=== PATIENT | female | born 1995 ===

== ENCOUNTER 2017-03-01 15:41 | Emergency (ER) | payer MEDICAID, OTHER ==
[2017-03-01 15:42] VITALS: BMI 27.2
[2017-03-01 15:57] VITALS: BP 108/66; PULSE 86; RESP 19; TEMP 98.4; O2SAT 98
--- NOTE | 2017-03-01 16:06 | ED PDOC ---
Arrival/HPI - General Chief Complaint: Female Genitourinary Time Seen by Provider: 03/01/17 16:04 Historian: Patient - History of Present Illness Narrative History of Present Illness (Text): 03/01/17 16:04 Patient reports 1 week h/o yellow malodorous vaginal discharge. Has used over the counter preparation - monistat 2-3 days ago with no relief. Otherwise: (- ) abdominal pain, (-) dysuria, (-) recent antibiotic use, (-) fever, (-) urinary symptoms. Of note, patient adds that she has a h/o TOP 1 month ago, since then has not had her period, but is sexually active with 1 partner, has been using condoms all the time. LNMP: 1 month ago Past Medical History - Provider Review Nursing Documentation Reviewed: Yes - Past History Past History: No Previous - Infectious Disease Hx of Infectious Diseases: None - Tetanus Immunization Tetanus Immunization: Unknown - Past Medical History Past Medical History: No Previous - Cardiac Hx Cardiac Disorders: No - Pulmonary Hx Respiratory Disorders: No - Neurological Hx Neurological Disorder: No - HEENT Hx HEENT Disorder: No - Renal Hx Renal Disorder: No - Endocrine/Metabolic Hx Endocrine Disorders: No - Hematological/Oncological Hx Blood Disorders: No - Integumentary Hx Dermatological Disorder: No - Musculoskeletal/Rheumatological Hx Musculoskeletal Disorders: No - Gastrointestinal Hx Gastrointestinal Disorders: No - Genitourinary/Gynecological Hx Genitourinary Disorders: Yes Hx Reproductive Disorders: (ovarian cyst) - Psychiatric Hx Psychophysiologic Disorder: No Hx Substance Use: Yes (sometimes) - Past Surgical History Past Surgical History: No Previous - Surgical History Other/Comment: 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 - Anesthesia Hx Anesthesia: Yes Hx Anesthesia Reactions: No Hx Malignant Hyperthermia: No - Suicidal Assessment Feels Threatened In Home Enviroment: No Family/Social History - Physician Review Nursing Documentation Reviewed: Yes Family/Social History: No Known Family HX Smoking Status: Heavy Smoker > 10 Cigarettes Daily Hx Alcohol Use: Yes Hx Substance Use: Yes (sometimes) Substance used: marijuana Hx Substance Use Treatment: No Allergies/Home Meds Allergies/Adverse Reactions: Allergies No Known Allergies Allergy (Verified 03/01/17 15:57) Review of Systems - Review of Systems Constitutional: Normal. absent: Fatigue, Weight Change, Fevers Cardiovascular: Normal. absent: Chest Pain, Palpitations Gastrointestinal: Normal. absent: Abdominal Pain, Stool Changes, Appetite Changes Genitourinary Female: Normal, Vaginal Discharge. absent: Dysuria, Frequency, Hematuria Skin: Normal. absent: Rash, Pruritis, Skin Lesions Physical Exam - Physical Exam Narrative Physical Exam (Text): 03/01/17 16:05 GENERAL APPEARANCE: Patient is awake, alert, oriented x 3, in no acute distress. SKIN: Warm, dry; (-) cyanosis. ABDOMEN AND GI: Soft, (-) tenderness. PELVIC: Normal external genitalia; (-) vesicles, (-) ulcers. (+) think yellow- green vaginal discharge; (-) cervical discharge, (-) bleeding, (-) pain on cervical motion. Uterus normal. No adnexal mass or tenderness. A female RN - Renetta, was lining brusher during the entire examination. EXTREMITIES: (-) deformity. Vital Signs Temp Pulse Resp BP Pulse Ox 03/01/17 15:49 98.4 F 86 19 108/66 98 Medical Decision Making ED Course and Treatment: 03/01/17 16:05 22 yo F c/o 1 week h/o vaginal discharge, based on exam is likely bacterial vaginosis. cg (-). Based on history and exam, plan will be for outpatient follow-up. Patient states he fully agrees with and understands discharge instructions. States that he agrees with the plan and disposition. Verbalized and repeated discharge instructions and plan. I have given the patient opportunity to ask any additional questions. Follow up with the clinic in 1-2 days without fail. Advised to take medication as prescribed. Return to the emergency room at any time for any new or worsening symptoms. - PA / PULP DRIER FIRER / Resident Statement MD/DO has reviewed & agrees with the documentation as recorded. Disposition/Present on Arrival - Present on Arrival Any Indicators Present on Arrival: No History of DVT/PE: No History of Uncontrolled Diabetes: No Urinary Catheter: No History of Decub. Ulcer: No History Surgical Site Infection Following: None - Disposition Have Diagnosis and Disposition been Completed?: Yes Diagnosis: Bacterial vaginosis Disposition: HOME/ ROUTINE Disposition Time: 16:29 Patient Plan: Discharge Condition: GOOD Discharge Instructions (ExitCare): Bacterial Vaginosis (ED) Print Language: HUNGARIAN Prescriptions: Metronidazole [Metrogel-Vaginal] 1 ea VG QPM #5 gel Referrals: Dynis Jignesh Tee, [Primary Care Provider] - Follow up with primary Forms: WORK NOTE, SCHOOL NOTE
== END 2017-03-01 16:38 | disposition home or self-care (01) ==
LOC: ED 15:41
DX: N76.0 Acute vaginitis (principal)

== ENCOUNTER 2017-04-03 19:03 | Emergency (ER) | payer SELFPAY ==
[2017-04-03 19:17] VITALS: BMI 27.7
[2017-04-03 19:19] VITALS: O2SAT 99
[2017-04-03] MEDS ORDERED: Sodium Chloride 0.9% 1,000 ML IV STA (20:04)
[2017-04-03] MEDS ORDERED: Sodium Chloride 0.9% 100 ML IV SCH (20:06)
--- NOTE | 2017-04-03 20:31 | ED PDOC ---
Arrival/HPI - General Chief Complaint: Flu-like Symptoms Time Seen by Provider: 04/03/17 19:55 Historian: Patient - History of Present Illness Narrative History of Present Illness (Text): 04/03/17 20:28 This is a 22Y F with PMH dermoid ovarian cyst s/p removal here for sore throat, cough, abdominal pain for the past 2 days. The patient reports that for the past 2 days she began having a cough and sore throat. She says she has fever, chills, but denies sick contacts or recent travel. She started to have n/v/d and epigastric pain that radiates to LUQ. She denies dysuria, hematuria, back pain, dizziness, neck pain or vision changes. She reports she is up to date with all vaccinations. Time/Duration: < week (2 days ) Symptom Onset: Gradual Symptom Course: Worsening Quality: Aching, Pressure Severity Level: 8 Activities at Onset: Rest Context: Home Past Medical History - Provider Review Nursing Documentation Reviewed: Yes - Past History Past History: No Previous - Infectious Disease Hx of Infectious Diseases: None - Tetanus Immunization Tetanus Immunization: Unknown - Past Medical History Past Medical History: No Previous - Cardiac Hx Cardiac Disorders: No - Pulmonary Hx Respiratory Disorders: No - Neurological Hx Neurological Disorder: No - HEENT Hx HEENT Disorder: No - Renal Hx Renal Disorder: No - Endocrine/Metabolic Hx Endocrine Disorders: No - Hematological/Oncological Hx Blood Disorders: No - Integumentary Hx Dermatological Disorder: No - Musculoskeletal/Rheumatological Hx Musculoskeletal Disorders: No - Gastrointestinal Hx Gastrointestinal Disorders: No - Genitourinary/Gynecological Hx Genitourinary Disorders: Yes Hx Reproductive Disorders: (ovarian cyst) - Psychiatric Hx Psychophysiologic Disorder: No Hx Substance Use: Yes (sometimes) - Past Surgical History Past Surgical History: No Previous - Surgical History Hx Dilation and Curettage: Yes (January 2017) Other/Comment: 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 - Anesthesia Hx Anesthesia: Yes Hx Anesthesia Reactions: No Hx Malignant Hyperthermia: No - Suicidal Assessment Feels Threatened In Home Enviroment: No Family/Social History - Physician Review Nursing Documentation Reviewed: Yes Family/Social History: Hypertension Smoking Status: Never Smoked Hx Alcohol Use: Yes Hx Substance Use: Yes (sometimes) Substance used: marijuana Hx Substance Use Treatment: No Allergies/Home Meds Allergies/Adverse Reactions: Allergies No Known Allergies Allergy (Verified 03/01/17 15:57) Review of Systems - Review of Systems Constitutional: Normal Eyes: Normal ENT: Normal Respiratory: Normal Cardiovascular: Normal Gastrointestinal: Normal Genitourinary Female: Normal Musculoskeletal: Normal Skin: Normal Neurological: Normal Endocrine: Normal Hemo/Lymphatic: Normal Psychiatric: Normal Physical Exam Vital Signs Reviewed: Yes Vital Signs Temp Pulse Resp BP Pulse Ox 04/03/17 21:20 98.9 F 79 18 114/73 99 04/03/17 19:18 101.4 F H 87 16 114/66 99 Temperature: Febrile Blood Pressure: Normal Pulse: Regular Respiratory Rate: Normal Appearance: Positive for: Well-Appearing, Non-Toxic, Comfortable Pain Distress: None Mental Status: Positive for: Alert and Oriented X 3 - Systems Exam Head: Present: Atraumatic, Normocephalic Pupils: Present: PERRL Extroacular Muscles: Present: EOMI Conjunctiva: Present: Normal Mouth: Present: Moist Mucous Membranes Pharnyx: Present: ERYTHEMA, TONSILS ENLARGED. No: EXUDATE Nose (External): Present: Atraumatic Nose (Internal): Present: Rhinorrhea Neck: Present: Normal Range of Motion Respiratory/Chest: Present: Clear to Auscultation, Good Air Exchange. No: Respiratory Distress, Accessory Muscle Use Cardiovascular: Present: Regular Rate and Rhythm, Normal S1, S2. No: Murmurs Abdomen: Present: Tenderness (epigastric), Normal Bowel Sounds. No: Distention , Peritoneal Signs Back: Present: Normal Inspection Upper Extremity: Present: Normal Inspection. No: Cyanosis, Edema Lower Extremity: Present: Normal Inspection. No: Edema Neurological: Present: GCS=15, CN II-XII Intact, Speech Normal Skin: Present: Warm, Dry, Normal Color. No: Rashes Psychiatric: Present: Alert, Oriented x 3, Normal Insight, Normal Concentration Medical Decision Making ED Course and Treatment: 04/03/17 20:31 Impression: This is a 22 year old F with no PMH here for sore throat, cough, abdominal pain with n/v/d. She has fever and chills, but denies sick contacts, dysuria, hematuria. Differential Diagnosis: -- Influenza, EBV, pneumonia Plan: -- CBC, CMP, U/A, Urine culture, influenza, Monospot test -- CXR -- Tylenol, IVF, Pepcid, Zofran, Rapid strep. -- Reassess and disposition Prior Visits: Notes and results from previous visits were reviewed. Progress Note: All lab work within normal. Patient reports feeling better. Appetite improved. Re-evaluation Time: 21:45 Reassessment Condition: Improved - Lab Interpretations Lab Results: 04/03/17 20:30 04/03/17 20:30 Lab Results 04/03/17 22:15: Grp A Beta Strep Ag Negative 04/03/17 20:48: Urine Color Yellow, Urine Appearance Clear, Urine pH 6.0, Ur Specific [place] >= 1.030, Urine Protein Trace H, Urine Glucose (UA) Negative, Urine Ketones >=80, Urine Blood Negative, Urine Nitrate Negative, Urine Bilirubin Negative, Urine Urobilinogen 0.2, Ur Leukocyte Esterase Negative, Urine RBC Negative, Urine WBC 1 - 3, Ur Epithelial Cells 3 - 4, Urine Bacteria Few 04/03/17 20:43: Beta HCG, Quant < 2.39 04/03/17 20:30: Influenza Typ A,B (EIA) Negative for flu a/b 04/03/17 20:30: Sodium 138, Potassium 3.9, Chloride 99, Carbon Dioxide 26, Anion Gap 17, BUN 10, Creatinine 0.8, Est GFR ( Amer) > 60, Est GFR (Non- Af Amer) > 60, Random Glucose 87, Calcium 9.7, Total Bilirubin 0.7, AST 33, ALT 36, Alkaline Phosphatase 75, Total Protein 8.3, Albumin 4.7, Globulin 3.6, Albumin/Globulin Ratio 1.3 04/03/17 20:30: WBC 9.6 D, RBC 4.82, Hgb 14.7, Hct 41.7, MCV 86.5, MCH 30.5, MCHC 35.3, RDW 12.3, Plt Count 225, MPV 11.9 H, Gran % 88.2 H, Lymph % (Auto) 7.0 L, [place] % (Auto) 4.2, Eos % (Auto) 0.4 L, Baso % (Auto) 0.2, Gran # 8.46 H, Lymph # 0.7 L, [place] # 0.4, Eos # 0.0, Baso # 0.02 I have reviewed the lab results: Yes Interpretation: All labs normal - RAD Interpretation Narrative RAD Interpretations (Text): 04/03/17 23:30 CXR showed no active disease. Radiology Orders: 04/03/17 22:48 CXR [CHEST PORTABLE] [RAD] Stat Repairer And Checker: ED Physician - Medication Orders Current Medication Orders: Discontinued Medications Acetaminophen (Tylenol 325mg Tab) 975 mg PO STAT STA Stop: 04/03/17 20:06 Last Admin: 04/03/17 20:51 Dose: 975 mg Re-Assess: MAR Pain/Vitals Document 04/03/17 21:51 HI (Rec: 04/03/17 23:41 HI [facility] [id number]) Pain Reassessment Is This A Pain ReAssessment? Yes Sleep Is patient sleeping during reassessment? No Pain Scale Used Pain Scale Used Numeric Famotidine (Pepcid) 20 mg IVP STAT STA Stop: 04/03/17 20:05 Last Admin: 04/03/17 20:52 Dose: 20 mg Sodium Chloride (Sodium Chloride 0.9%) 1,000 mls @ 999 mls/hr IV .Q1H1M STA Stop: 04/03/17 21:04 Last Admin: 04/03/17 20:30 Dose: 999 mls/hr Ibuprofen (Motrin Tab) 600 mg PO STAT STA Stop: 04/03/17 23:54 Ondansetron HCl (Zofran Inj) 4 mg IVP STAT STA Stop: 04/03/17 20:05 Last Admin: 04/03/17 20:51 Dose: 4 mg Disposition/Present on Arrival - Present on Arrival Any Indicators Present on Arrival: No History of DVT/PE: No History of Uncontrolled Diabetes: No Urinary Catheter: No History of Decub. Ulcer: No History Surgical Site Infection Following: None - Disposition Have Diagnosis and Disposition been Completed?: Yes Diagnosis: URI (upper respiratory infection), Gastritis Disposition: HOME/ ROUTINE Disposition Time: 22:00 Patient Plan: Discharge Patient Problems: Current Active Problems Problem Status Onset Gastritis Acute URI (upper respiratory infection) Acute Condition: FAIR Discharge Instructions (ExitCare): Gastritis (DC), Upper Respiratory Infection (ED), Cold Symptoms (ED) Print Language: GABONESE Additional Instructions: Ms. Soria, thank you for letting us take care of you today. Your provider was Dr. Rivers. You were treated for upper respiratory infection and gastritis. The emergency medical care you received today was directed at your acute symptoms. If you were prescribed any medication, please fill it and take as directed. It may take several days for your symptoms to resolve. Return to the Emergency Department if your symptoms worsen, do not improve, or if you have any other problems. Please contact your doctor or call one of the physicians/clinics you have been referred to that are listed on the Patient Visit Information form that is included in your discharge packet. Bring any paperwork you were given at discharge with you along with any medications you are taking to your follow up visit. Our treatment cannot replace ongoing medical care by a primary care provider (PCP) outside of the emergency department. Thank you for allowing the [facility] team to be part of your care today. If you had an X-Ray or CT scan: A Radiologist will review the ED reading if any change in treatment is needed we will contact you. If you had a blood, urine, or wound culture: It will take several days for the results, if any change in treatment is needed we will contact you. Will call to follow up [place] spot test results. Prescriptions: Ibuprofen [Motrin] 600 mg PO Q8H PRN #15 tab PRN Reason: Pain, Moderate (4-7) Referrals: PCP,NO [Primary Care Provider] - Follow up with primary
[2017-04-03 20:44] LABS: ADD MANUAL DIFF? NO
[2017-04-03 20:56] LABS: URINE BILIRUBIN NEGATIVE (NEGATIVE); URINE BLOOD NEGATIVE (NEGATIVE); URINE GLUCOSE (UA) NEGATIVE (NEGATIVE); URINE KETONE >=80 mg/dL (NEGATIVE); URINE LEUKOCYTE ESTERASE NEGATIVE Leu/uL (NEGATIVE); URINE PROTEIN TRACE mg/dL (<30 mg/dL); URINE UROBILINOGEN 0.2 E.U./dL (<1 E.U./dL)
[2017-04-03 20:57] LABS: BASO # 0.02 K/mm3 (0.0-2.0); BASO % 0.2 % (0.0-3.0); EOS % 0.4 % (1.5-5.0); GRAN # 8.46 (1.4-6.5); GRAN % 88.2 % (50.0-68.0); HEMATOCRIT 41.7 % (36.0-48.0); LYMPH # 0.7 (1.2-3.4); MEAN CELL VOLUME 86.5 fL (80.0-105.0); MEAN CORPUSCULAR HEMOGLOBIN 30.5 pg (25.0-35.0); MEAN CORPUSCULAR HGB CONC 35.3 g/dl (31.0-37.0); MEAN PLATELET VOLUME 11.9 fl (7.0-11.0); MONO # 0.4 (0.1-0.6); MONO % 4.2 % (1.0-6.0); PLATELET COUNT 225 10^3/uL (120.0-450.0); RED CELL DISTRIBUTION WIDTH 12.3 % (11.5-14.5); WHITE BLOOD COUNT 9.6 10^3/ul (4.5-11.0)
[2017-04-03 21:02] LABS: URINE APPEARANCE CLEAR (CLEAR); URINE COLOR YELLOW (YELLOW)
[2017-04-03 21:06] LABS: ALB/GLOB RATIO 1.3 (1.1-1.8); ALKALINE PHOSPHATASE 75 U/L (38-133); ALT/SGPT 36 U/L (7-56); AST/SGOT 33 U/L (15-39); BILIRUBIN,TOTAL 0.7 mg/dL (0.2-1.3); BLOOD UREA NITROGEN 10 mg/dL (7-21); CALCIUM 9.7 mg/dL (8.4-10.5); CARBON DIOXIDE 26 mmol/L (21-33); CHLORIDE 99 mmol/L (95-110); GFR AFRICAN-AMERICAN > 60; GLUCOSE,RANDOM 87 mg/dL (70-110); POTASSIUM 3.9 mmol/L (3.6-5.0); SODIUM 138 mmol/L (132-148); TOTAL PROTEIN 8.3 g/dL (5.8-8.3)
[2017-04-03 21:10] LABS: URINE BACTERIA FEW (NEG); URINE RBC NEGATIVE /hpf (0-2)
[2017-04-04 00:36] VITALS: BP 118/72; PULSE 91; RESP 16; TEMP 99.1
--- NOTE | 2017-04-04 14:28 | RAD ---
HISTORY: r/o pneumonia COMPARISON: 09/18/2015 FINDINGS: LUNGS: No active pulmonary disease. PLEURA: No significant pleural effusion identified, no pneumothorax apparent. CARDIOVASCULAR: Normal. OSSEOUS STRUCTURES: No significant abnormalities. VISUALIZED UPPER ABDOMEN: Normal. OTHER FINDINGS: None. IMPRESSION: No active disease.
== END 2017-04-04 00:38 | disposition home or self-care (01) ==
LOC: ED 19:03
DX: J06.9 Acute upper respiratory infection, unspecified (principal); K29.70 Gastritis, unspecified, without bleeding
CPT/HCPCS: 71010; 80053; 81001; 84702; 85025; 86308; 87070; 87086; 87430; 87804; 96374; 96375; 99284; J2405; J7040

== ENCOUNTER 2017-05-05 08:39 | Emergency (ER) | payer MEDICAID, OTHER ==
[2017-05-05 08:48] VITALS: BMI 25.8
[2017-05-05 08:54] VITALS: TEMP 97.4; O2SAT 100
[2017-05-05] MEDS ORDERED: Albuterol 0.083% Inhal Sol (2.5 mg/3 mL) UD IH STA (09:05)
[2017-05-05] MEDS ORDERED: guaiFENesin DM 200 mg-20 mg/10 ml UD PO STA (09:07)
--- NOTE | 2017-05-05 09:16 | ED PDOC ---
Arrival/HPI - General Chief Complaint: Cough, Cold, Congestion Time Seen by Provider: 05/05/17 08:57 Historian: Patient - History of Present Illness Narrative History of Present Illness (Text): 05/05/17 09:17 A 22 year old female presents to the emergency department complaining of a cough since yesterday. Patient reports a dry and productive cough with posttussive chest pain. Patient notes deep breaths that then make her cough. She also c/o frequent bowel movements but denies any fever, runny nose or any other complaints at this time. Time/Duration: Other (yesterday) Symptom Onset: Sudden Symptom Course: Unchanged Activities at Onset: Rest Context: Home Past Medical History - Provider Review Nursing Documentation Reviewed: Yes - Past History Past History: No Previous - Infectious Disease Hx of Infectious Diseases: None - Tetanus Immunization Tetanus Immunization: Unknown - Reproductive Menopause: No - Past Medical History Past Medical History: No Previous - Cardiac Hx Cardiac Disorders: No - Pulmonary Hx Respiratory Disorders: No - Neurological Hx Neurological Disorder: No - HEENT Hx HEENT Disorder: No - Renal Hx Renal Disorder: No - Endocrine/Metabolic Hx Endocrine Disorders: No - Hematological/Oncological Hx Blood Disorders: No - Integumentary Hx Dermatological Disorder: No - Musculoskeletal/Rheumatological Hx Musculoskeletal Disorders: No - Gastrointestinal Hx Gastrointestinal Disorders: No - Genitourinary/Gynecological Hx Genitourinary Disorders: Yes Hx Reproductive Disorders: (ovarian cyst) - Psychiatric Hx Psychophysiologic Disorder: No Hx Substance Use: Yes (sometimes) - Past Surgical History Past Surgical History: No Previous - Surgical History Hx Dilation and Curettage: Yes (January 2017) Other/Comment: 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 - Anesthesia Hx Anesthesia: Yes Hx Anesthesia Reactions: No Hx Malignant Hyperthermia: No - Suicidal Assessment Feels Threatened In Home Enviroment: No Family/Social History - Physician Review Nursing Documentation Reviewed: Yes Family/Social History: No Known Family HX Smoking Status: Never Smoked Hx Alcohol Use: Yes Hx Substance Use: Yes (sometimes) Substance used: marijuana Hx Substance Use Treatment: No Allergies/Home Meds Allergies/Adverse Reactions: Allergies No Known Allergies Allergy (Verified 05/05/17 08:48) Review of Systems - Physician Review All systems were reviewed & negative as marked: Yes - Review of Systems Constitutional: absent: Fevers ENT: absent: Rhinorrhea Respiratory: Cough Cardiovascular: Chest Pain Gastrointestinal: Other (frequent bowel movements) Physical Exam Vital Signs Reviewed: Yes Vital Signs Temp Pulse Resp BP Pulse Ox 05/05/17 10:37 82 17 126/77 100 05/05/17 08:53 97.4 F L 87 18 131/84 100 Temperature: Afebrile Blood Pressure: Normal Pulse: Regular Respiratory Rate: Normal Appearance: Positive for: Well-Appearing, Non-Toxic, Comfortable Pain Distress: None Mental Status: Positive for: Alert and Oriented X 3 - Systems Exam Head: Present: Atraumatic, Normocephalic Pupils: Present: PERRL Extroacular Muscles: Present: EOMI Conjunctiva: Present: Normal Mouth: Present: Moist Mucous Membranes Pharnyx: Present: Normal Neck: Present: Normal Range of Motion Respiratory/Chest: Present: Clear to Auscultation, Good Air Exchange. No: Respiratory Distress, Accessory Muscle Use Cardiovascular: Present: Regular Rate and Rhythm, Normal S1, S2. No: Murmurs Abdomen: Present: Normal Bowel Sounds. No: Tenderness, Distention, Peritoneal Signs Back: Present: Normal Inspection Upper Extremity: Present: Normal Inspection. No: Cyanosis, Edema Lower Extremity: Present: Normal Inspection. No: Edema Neurological: Present: GCS=15, CN II-XII Intact, Speech Normal Skin: Present: Warm, Dry, Normal Color. No: Rashes Psychiatric: Present: Alert, Oriented x 3, Normal Insight, Normal Concentration Medical Decision Making ED Course and Treatment: 05/05/17 09:13 Impression: A 22 year old female with cough. Differential Diagnosis included but are not limited to: bronchitis vs. viral syndrome Plan: -- chest xray -- Albuterol, Robitussin -- Reassess and disposition Prior Visits: Notes and results from previous visits were reviewed. Patient last reported to the emergency department on 04/03/17 for evaluation of sore throat, cough, abdominal pain with nausea, vomiting and diarrhea. Progress Notes: On re-evaluation, patient feels better and is in no acute distress. I have discussed the results and plan with the patient, who expresses understanding. Patient in agreement with plan to be discharged home. Patient is stable for discharge. Patient was instructed to follow up with physician or return if symptoms worsen or new concerning symptoms arise. - RAD Interpretation Radiology Orders: 05/05/17 09:05 CHEST TWO VIEWS (PA/LAT) [RAD] Stat Manager Pool: ED Physician (CXR negative.) - Medication Orders Current Medication Orders: Discontinued Medications Albuterol Sulfate (Albuterol 0.083% Inhal Stephanie (2.5 Mg/3 Ml) Ud) 2.5 mg IH STAT STA Stop: 05/05/17 09:06 Last Admin: 05/05/17 09:13 Dose: 2.5 mg Guaifenesin/Dextromethorphan (Robitussin Dm) 10 ml PO STAT STA Stop: 05/05/17 09:08 Last Admin: 05/05/17 09:13 Dose: 10 ml - Scribe Statement The provider has reviewed the documentation as recorded by the Renettaibkarl Ramírez Provider Scribe Attestation: All medical record entries made by the Scribe were at my direction and personally dictated by me. I have reviewed the chart and agree that the record accurately reflects my personal performance of the history, physical exam, medical decision making, and the department course for this patient. I have also personally directed, reviewed, and agree with the discharge instructions and disposition. Disposition/Present on Arrival - Present on Arrival Any Indicators Present on Arrival: No History of DVT/PE: No History of Uncontrolled Diabetes: No Urinary Catheter: No History of Decub. Ulcer: No History Surgical Site Infection Following: None - Disposition Have Diagnosis and Disposition been Completed?: Yes Diagnosis: Bronchitis Disposition: HOME/ ROUTINE Disposition Time: 10:38 Patient Plan: Discharge Condition: IMPROVED Discharge Instructions (ExitCare): Acute Bronchitis (ED) Additional Instructions: Ms Soria, thank you for letting us take care of you today. Your provider was Dr. Patel. You were treated for Bronchitis. The emergency medical care you received today was directed at your acute symptoms. If you were prescribed any medication, please fill it and take as directed. It may take several days for your symptoms to resolve. Return to the Emergency Department if your symptoms worsen, do not improve, or if you have any other problems. Please contact your doctor or call one of the physicians/clinics you have been referred to that are listed on the Patient Visit Information form that is included in your discharge packet. Bring any paperwork you were given at discharge with you along with any medications you are taking to your follow up visit. Our treatment cannot replace ongoing medical care by a primary care provider (PCP) outside of the emergency department. Thank you for allowing the [facility] team to be part of your care today. If you had an X-Ray or CT scan: A Radiologist will review the ED reading if any change in treatment is needed we will contact you. If you had a blood, urine, or wound culture: It will take several days for the results, if any change in treatment is needed we will contact you. If you had an STI test: It will take 48 hours for the results. Please call after 1 week if you have not heard back. Prescriptions: Albuterol HFA [Ventolin HFA 90 mcg/actuation (8 g)] 2 puff IH Q4 #1 puff guaiFENesin/Dextromethorphan [guaiFENesin-DM] 10 ml PO Q8 PRN #1 bottle PRN Reason: Cough Referrals: PCP,NO [Primary Care Provider] - Follow up with primary Forms: Rypple (Latvian), WORK NOTE
[2017-05-05 10:38] VITALS: BP 126/77; PULSE 82; RESP 17
--- NOTE | 2017-05-05 10:49 | RAD ---
HISTORY: cough r/o pna COMPARISON: 04/03/2017 TECHNIQUE: Chest PA and lateral FINDINGS: LUNGS: No active pulmonary disease. PLEURA: No significant pleural effusion identified. No pneumothorax apparent. CARDIOVASCULAR: Normal. OSSEOUS STRUCTURES: No significant abnormalities. VISUALIZED UPPER ABDOMEN: Normal. OTHER FINDINGS: None. IMPRESSION: No active disease.
== END 2017-05-05 10:47 | disposition home or self-care (01) ==
LOC: ED 08:39
DX: J20.9 Acute bronchitis, unspecified (principal)

== ENCOUNTER 2017-12-16 14:14 | Emergency (ER) | payer OTHER ==
[2017-12-16 14:30] VITALS: BMI 26.9
[2017-12-16 16:05] LABS: PH,URINE 8.5 (4.7-8.0); URINE BILIRUBIN NEGATIVE (NEGATIVE); URINE BLOOD SMALL (NEGATIVE); URINE GLUCOSE (UA) NEGATIVE (NEGATIVE); URINE LEUKOCYTE ESTERASE NEGATIVE Leu/uL (NEGATIVE); URINE NITRATE NEGATIVE (NEGATIVE); URINE PROTEIN NEGATIVE mg/dL (<30 mg/dL); URINE UROBILINOGEN 0.2 E.U./dL (<1 E.U./dL)
[2017-12-16 16:06] LABS: URINE APPEARANCE CLEAR (CLEAR); URINE COLOR YELLOW (YELLOW)
[2017-12-16 16:15] LABS: URINE TRIPLE PHOSPHATE CRYSTAL FEW /hpf
--- NOTE | 2017-12-16 16:26 | ED PDOC ---
Arrival/HPI - General Chief Complaint: Flu-like Symptoms Time Seen by Provider: 12/16/17 14:19 - History of Present Illness Narrative History of Present Illness (Text): 12/16/17 16:20 Pt is a 22 F complaining of flu-like [id number] and vomiting since this morning. Pt reports that she began to have chills and bone ache and headache last night, then developed a cough. Today she vomited approx 5 cups of yellowish fluid and reports trying to eat and drink but continues to vomit. Was [place] [facility] [place] and was assessed for the flu and sent home with Tamiflu along with meds for gastritis which was the additional dx. Pt reports inability to keep medication down at this point. She did not receive the flu vaccine this year. (Elizabeth Cagle) Past Medical History - Past History Past History: No Previous - Infectious Disease Hx of Infectious Diseases: None - Tetanus Immunization Tetanus Immunization: Unknown - Past Medical History Past Medical History: No Previous - Cardiac Hx Cardiac Disorders: No - Pulmonary Hx Respiratory Disorders: No - Neurological Hx Neurological Disorder: No - HEENT Hx HEENT Disorder: No - Renal Hx Renal Disorder: No - Endocrine/Metabolic Hx Endocrine Disorders: No - Hematological/Oncological Hx Blood Disorders: No - Integumentary Hx Dermatological Disorder: No - Musculoskeletal/Rheumatological Hx Musculoskeletal Disorders: No - Gastrointestinal Hx Gastrointestinal Disorders: No - Genitourinary/Gynecological Hx Genitourinary Disorders: Yes Hx Reproductive Disorders: (ovarian cyst) - Psychiatric Hx Psychophysiologic Disorder: No Hx Substance Use: Yes (sometimes) - Past Surgical History Past Surgical History: No Previous - Surgical History Hx Dilation and Curettage: Yes (January 2017) Other/Comment: 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 - Anesthesia Hx Anesthesia: Yes Hx Anesthesia Reactions: No Hx Malignant Hyperthermia: No - Suicidal Assessment Feels Threatened In Home Enviroment: No Family/Social History Family/Social History: Unknown Family HX Smoking Status: Never Smoked Hx Alcohol Use: Yes Hx Substance Use: Yes (sometimes) Substance used: marijuana Hx Substance Use Treatment: No Allergies/Home Meds Allergies/Adverse Reactions: Allergies No Known Allergies Allergy (Verified 05/05/17 08:48) Home Medications: Home Meds Medication Instructions Recorded Confirmed Benzonatate 100 mg PO Q8 PRN 12/16/17 12/16/17 Famotidine [Pepcid] 20 mg PO DAILY 12/16/17 12/16/17 Oseltamivir Phosphate [Tamiflu] 75 mg PO BID 12/16/17 12/16/17 Review of Systems - Review of Systems Constitutional: Fevers Eyes: Normal ENT: Normal Respiratory: SOB, Cough Cardiovascular: Normal Gastrointestinal: Abdominal Pain, Nausea, Vomiting, Appetite Changes Genitourinary Female: Normal Musculoskeletal: Normal Skin: Normal Neurological: Normal Endocrine: Normal Hemo/Lymphatic: Normal Psychiatric: Normal Physical Exam Vital Signs Reviewed: Yes Temperature: Afebrile Blood Pressure: Normal Pulse: Regular Respiratory Rate: Normal Appearance: Positive for: Ill-Appearing, Uncomfortable Pain Distress: Mild Mental Status: Positive for: Alert and Oriented X 3 - Systems Exam Head: Present: Atraumatic, Normocephalic Pupils: Present: PERRL Extroacular Muscles: Present: EOMI Conjunctiva: Present: Normal Mouth: Present: Moist Mucous Membranes Pharnyx: Present: ERYTHEMA, TONSILS ENLARGED Neck: Present: Normal Range of Motion Respiratory/Chest: Present: Clear to Auscultation, Good Air Exchange. No: Respiratory Distress, Accessory Muscle Use Cardiovascular: Present: Regular Rate and Rhythm, Normal S1, S2. No: Murmurs Abdomen: Present: Tenderness (diffuse), Normal Bowel Sounds. No: Distention, Peritoneal Signs Back: Present: Normal Inspection Upper Extremity: Present: Normal Inspection. No: Cyanosis, Edema Lower Extremity: Present: Normal Inspection. No: Edema Neurological: Present: GCS=15, CN II-XII Intact, Speech Normal Skin: Present: Warm, Dry, Normal Color. No: Rashes Psychiatric: Present: Alert, Oriented x 3, Normal Insight, Normal Concentration Vital Signs Temp Pulse Resp BP Pulse Ox 12/16/17 18:10 99 F 92 H 18 123/77 98 12/16/17 16:40 100 F H 98 H 20 118/78 98 Medical Decision Making - Lab Interpretations I have reviewed the lab results: Yes - RAD Interpretation Waiter/Waitress: Radiologist ED Course and Treatment: 12/16/17 16:26 Pt is a 22 F complaining of flu-like [id number] and vomiting since this morning. Plan: cbc, cmp, ua, rapid flu ivp zofran CXR Progress Note: Pt was reassessed and found resting comfortably in bed. Complains of stomach pain, most likely d/t not eating and vomiting today. Discussed f/u with primary in the next 2 days Pt currently has Tamiflu, fomotidine and ibuprofen that she was given at [facility]; advised pt on how to take properly 12/16/17 17:02 (Elizabeth Cagle) - Lab Interpretations Lab Results: 12/16/17 17:10 12/16/17 17:10 Lab Results 12/16/17 17:10: Sodium 137, Potassium 4.1, Chloride 101, Carbon Dioxide 26, Anion Gap 14, BUN 10, Creatinine 0.8, Est GFR ( Amer) > 60, Est GFR (Non- Af Amer) > 60, Random Glucose 86, Calcium 9.6, Total Bilirubin 0.7, AST 25, ALT 27, Alkaline Phosphatase 64, Total Protein 7.9, Albumin 4.4, Globulin 3.4, Albumin/Globulin Ratio 1.3 12/16/17 17:10: WBC 7.0 D, RBC 4.71, Hgb 14.9, Hct 43.5, MCV 92.4, MCH 31.6, MCHC 34.3, RDW 12.8, Plt Count 234, MPV 11.7 H 12/16/17 16:05: Influenza Typ A,B (EIA) Pos for influenza a H 12/16/17 15:38: Urine Color Yellow, Urine Appearance Clear, Urine pH 8.5, Ur Specific [place] 1.020, Urine Protein Negative, Urine Glucose (UA) Negative, Urine Ketones Negative, Urine Blood Small H, Urine Nitrate Negative, Urine Bilirubin Negative, Urine Urobilinogen 0.2, Ur Leukocyte Esterase Negative, Urine RBC 1 - 3, Urine WBC 1 - 3, Ur Epithelial Cells 4 - 5, Triple Phos Crystals Few - RAD Interpretation Narrative RAD Interpretations (Text): 12/16/17 16:57 Chest X-ray unremarkable; no evidence of disease (Elizabeth Cagle) Radiology Orders: 12/16/17 15:40 CXR [CHEST TWO VIEWS (PA/LAT)] [RAD] Stat - Medication Orders Current Medication Orders: Discontinued Medications Ondansetron HCl (Zofran Inj) 4 mg IVP STAT STA Stop: 12/16/17 16:12 Last Admin: 12/16/17 17:26 Dose: 4 mg IVP Administration Document 12/16/17 17:26 LA (Rec: 12/16/17 17:26 [facility] [id number]) Charges for Administration # of IVP Administrations 1 Disposition/Present on Arrival - Present on Arrival Any Indicators Present on Arrival: Yes History of DVT/PE: No History of Uncontrolled Diabetes: No Urinary Catheter: No History of Decub. Ulcer: No History Surgical Site Infection Following: None - Disposition Have Diagnosis and Disposition been Completed?: Yes Disposition Time: 16:58 Patient Plan: Discharge - Disposition Diagnosis: Influenza A, Vomiting Disposition: HOME/ ROUTINE Condition: STABLE Discharge Instructions (ExitCare): Oseltamivir (By mouth), H1N1 Influenza (ED) Additional Instructions: Dear Patient, You have been diagnosed with Influenza A that responds best with supportive care such as plenty of rest, fluids, tylenol or ibuprofen for pain and fever and Tamiflu for 5 days. Please make sure you wash your hands frequently to avoid transmission of the virus to others. For the nausea and vomiting, take the famotidine and cough medicine that your were prescribed. If you experience severe fever, pain, chest pain or shortness of breath of any other alarming symptoms, return to the emergency tito immediately. Please follow up with your Primary Doctor in less than a week. All the best in your recover Referrals: PCP,NO [Primary Care Provider] - Follow up with primary Forms: [facility] ([place]akh), WORK NOTE
--- NOTE | 2017-12-16 17:01 | RAD ---
HISTORY: shortness of breath COMPARISON: No prior. TECHNIQUE: Chest PA and lateral FINDINGS: LUNGS: No active pulmonary disease. PLEURA: No significant pleural effusion identified. No pneumothorax apparent. CARDIOVASCULAR: Normal. OSSEOUS STRUCTURES: No significant abnormalities. VISUALIZED UPPER ABDOMEN: Normal. OTHER FINDINGS: None. IMPRESSION: No active disease.
[2017-12-16 17:34] LABS: HEMOGLOBIN 14.9 g/dL (12.0-16.0); MEAN CELL VOLUME 92.4 fl (80.0-105.0); MEAN CORPUSCULAR HEMOGLOBIN 31.6 pg (25.0-35.0); MEAN CORPUSCULAR HGB CONC 34.3 g/dl (31.0-37.0); MEAN PLATELET VOLUME 11.7 fl (7.0-11.0); RBC 4.71 10^6/uL (3.5-6.1); RED CELL DISTRIBUTION WIDTH 12.8 % (11.5-14.5)
[2017-12-16 17:38] LABS: ALB/GLOB RATIO 1.3 (1.1-1.8); ALBUMIN 4.4 g/dL (3.0-4.8); ALT/SGPT 27 U/L (7-56); AST/SGOT 25 U/L (14-36); BLOOD UREA NITROGEN 10 mg/dL (7-21); CALCIUM 9.6 mg/dL (8.4-10.5); GFR AFRICAN-AMERICAN > 60; GFR NON-AFRICAN AMERICAN > 60
[2017-12-16 18:13] VITALS: BP 123/77; PULSE 92; RESP 18; TEMP 99; O2SAT 98
== END 2017-12-16 18:14 | disposition home or self-care (01) ==
LOC: ED 14:14
DX: J09.X2 Influenza due to identified novel influenza A virus with other respiratory manifestations (principal); R11.10 Vomiting, unspecified
CPT/HCPCS: 71046; 80053; 81001; 85027; 87804; 96374; 99284; J2405